=== PATIENT | female | born 1930 | race Caucasian/White ===

== ENCOUNTER 2017-05-05 12:55 | Inpatient (IN) | payer MEDICARE ==
[2017-05-05 13:19] LABS: #Eosinphils 0.2 thou/uL (0.0-0.7); #Lymphocytes 2.8 thou/uL (1.20-3.40); #Monocytes 0.2 thou/uL (0.11-0.59); #Neutrophils 5.3 thou/uL (1.40-6.50); %Basophils 0.4 % (0.0-1.0); %Eosinophils 1.8 % (0.0-10.0); %Lymphocytes 32.5 % (21.0-51.0); %Monocytes 2.6 % (0.0-10.0); %Neutrophils 62.7 % (42.0-75.0); Hemoglobin 9.5 g/dL (12.0-16.0); Mean Corpuscular HGB CONC 31.4 g/dL (32.0-36.0); Mean Corpuscular Volume 92.2 fl (81.0-99.0); Mean Platelet Volume 8.4 fL (7.4-10.4); Platelet Count 198 thou/uL (130-400); RBC Distribution Width 13.7 % (11.5-14.5); Red Blood Cell (RBC) Count 3.26 mill/uL (4.20-5.40); White Blood Cell (WBC) Count 8.5 thou/uL (4.8-10.8)
[2017-05-05 13:26] LABS: INR-International Normal Ratio 1.3; PTT 41.3 SEC (22.9-36.1); Prothrombin Time 16.5 SEC (12.0-14.7)
[2017-05-05 13:36] LABS: ALT (SGPT) 24 U/L (8-55); AST (SGOT) 68 U/L (5-34); Albumin 2.7 g/dL (3.4-4.8); Alkaline Phosphatase 100 U/L (40-150); Anion Gap 17 mmol/L (10-20); BUN (Urea Nitrogen) 25 mg/dL (9.8-20.1); Bilirubin, Total 0.2 mg/dL (0.2-1.2); CK (CPK) 94 U/L (29-168); Calc. Creatinine Clearance 0 mL/min (70-130); Calcium 7.6 mg/dL (7.8-10.44); Carbon Dioxide 16 mmol/L (23-31); Chloride 111 mmol/L (98-107); Estimated GFR-MDRD 60; Globulin 2.2 g/dL (2.4-3.5); Glucose 231 mg/dL (83-110); Potassium 4.2 mmol/L (3.5-5.1); Protein, Total 4.9 g/dL (6.0-8.3); Sodium 140 mmol/L (136-145)
[2017-05-05 13:41] LABS: CKMB 4.1 ng/mL (0-6.6); Troponin I 0.115 ng/mL (< 0.028)
[2017-05-05 13:46] LABS: Actual Bicarbonate (HCO3a) 18.8 mEq/L (22-26); CO2 Tension 39.1 mmHg (35.0-45.0); Hematocrit-ABG 29.6 % (36.0-47.0); Hemoglobin (Hb) 9.1 g/dL (12.0-16.0); O2 Tension (PaO2) 95.3 mmHg (80.0-100.0)
[2017-05-05 13:47] LABS: ALV-art Gradient 139.025 (0-20); Analyzer IN Cardio ER; Calcium, Ionized 1.1 mmol/L (1.12-1.30); Puncture Site RRA
--- NOTE | 2017-05-05 13:52 | RAD ---
PORTABLE CHEST 1 VIEW: DATE: 05/05/17. TIME: 1:40 p.m. HISTORY: Respiratory failure. FINDINGS: The lung apices have been excluded from the film. There is an endotracheal tube with tip 1.5 cm belo w the level of the vlad. A right internal jugular central line is seen with tip in the projection of the SVC. The heart is enlarged. there is left-sided pleural effusion. The visualized portions o f the right lung are clear. There are degenerative changes in the supine. A repeat exam is recommended to include the lung apices. POS: [facility]
[2017-05-05 14:09] LABS: Bilirubin Negative (Negative); Blood, Urine Negative (Negative); Clarity CLEAR (Clear); Glucose, Urine (Dipstick) Negative (Negative); Leukocyte Negative (Negative); Nitrite Negative (Negative); Protein, Urine (Dipstick) Negative (Neg-Trace); Specific Gravity, Urine 1.021 (1.002-1.036); Urobilinogen 0.2 mg/dL (0.2-1.0); pH, Urine 5.5 (5.0-9.0)
--- NOTE | 2017-05-05 15:12 | CT ---
CT BRAIN WITHOUT CONTRAST: Date: 05/05/17 HISTORY: Altered mental status. FINDINGS: There are changes of chronic small vessel ischemic disease in the periventricular white matter. The v entricular size is appropriate and the basilar cisterns are patent. No evidence of acute infarct, hem orrhage, midline shift, or abnormal extra-axial fluid collections are seen. The bony calvarium is int act. The visualized paranasal sinuses and mastoid air cells are well aerated. IMPRESSION: No CT evidence of acute intracranial process. POS: [facility]
--- NOTE | 2017-05-05 15:24 | CT ---
CT OF THE CERVICAL SPINE WITHOUT CONTRAST: Date: 05/05/17 INDICATION: History of trauma; 87-year-old female found down by her son with jaw pain earlier today. FINDINGS: The patient is intubated. There is diffuse osteopenia. There is multilevel spondylosis of the cervica l spine. Craniocervical junction appears preserved. No acute fracture or subluxation is evident. Osse ous central canal is preserved. There is a large left-sided pleural effusion. There is a right IJ erik tral venous catheter in place. IMPRESSION: 1. No acute osseous abnormality. 2. Multilevel spondylosis of the cervical spine. 3. Diffuse osteopenia. POS: [facility]
--- NOTE | 2017-05-05 16:48 | HP ---
DATE OF ADMISSION: 05/05/2017 PRIMARY CARE PHYSICIAN: Liseth Andujar M.D. CHIEF COMPLAINT: Found down unresponsive and out of the hospital cardiopulmonary arrest. HISTORY OF PRESENTING ILLNESS: Ms. Ellis is an 87-year-old female with past medical history of hy pertension, uterine cancer, and arthritis who presented to the emergency room after being found down. History is mainly obtained by discussion with the emergency room physician and chart review. The mary reynolds's son is in the room, but unfortunately, he was not present when the episode happened. The so n who brought the patient into the hospital is actually having anxiety attack and is being tended to in the other room in the ER. According to the ER physician, the patient suddenly complained of jaw and shoulder pain and her son felisa ent to get something from the other room and by the time he came back, she was on the floor unrespons evita. EMS was called and she was pulseless and was not breathing. CPR was immediately started with r eturn of spontaneous circulation in the field. She was brought in and currently is intubated. Estim ated length of time for which she was down is about 5-10 minutes before EMS was called and CPR was in itiated. Upon presentation to the emergency room, she was quite hypotensive with blood pressure recorded as lo w as 60/31. She was started on Levophed. She was not given IV fluids because she also has history o f congestive heart failure and her BNP is elevated to over 900. Her cardiac enzyme includes normal C K-MB with troponin of 0.115. Her EKG was quite concerning with ST depression in inferior leads and i nverted T waves in the lateral leads. She underwent a CT scan of the head and cervical spine of the neck, without any acute fractures or any hemorrhages. Given these findings of possible acute coronar y syndrome, Dr. Sipmson who is oncall for Cardiology was contacted by the ER physician. Dr. Simpson olivarez s evaluated the patient and wants her to be stabilized prior to taking to the cath laboratory technician or any invasiv e procedures. For now, the patient is being admitted to the Critical Care Unit on ventilator and pre ssors. PAST MEDICAL HISTORY: 1. Congestive heart failure. 2. Hypertension. 3. Uterine cancer. PAST SURGICAL HISTORY: 1. Breast biopsy. 2. Hysterectomy. PSYCHIATRIC HISTORY: Unknown. SOCIAL HISTORY: The patient used to smoke multiple years ago, but has quit smoking. Some of the fam jocelyn members also smoked but not that much. She currently lives with her son and walks around with th e help of a walker and is not very active. No history of drug or alcohol abuse. FAMILY HISTORY: Significant for at least stroke in one of her brothers as much as the son could tell me. Otherwise, he could not corroborate any history of coronary artery disease running in her famil y members. ALLERGIES: No known medication allergies. CURRENT MEDICATIONS: As listed; metoprolol succinate 100 mg daily, lisinopril 5 mg daily, hydrochlor othiazide 25 mg daily, vitamin D3 5000 units daily, Lasix 20 mg b.i.d., Aldactone 25 mg daily, ferrou s sulfate unknown dose, B12 daily. REVIEW OF SYSTEMS: Unavailable as the patient is currently intubated and sedated. PHYSICAL EXAMINATION: VITAL SIGNS: Upon presentation to the ER, blood pressure 94/69, pulse of 150, saturating 95% on vent ilator, respirations 16, temperature 96.1. GENERAL: She is intubated, sedated and is unresponsive because of that. She grimaces to pain. HEENT: She had a small abrasion to the back of her head. Pupils are round and reactive to light. M ucous membrane is moist. NECK: Free of any JVD, bruit or masses. CHEST: Clear to auscultation without any wheezing, rales or rhonchi. Rate and rhythm is regular wit hout any murmurs, rubs, or gallops. ABDOMEN: Soft, obese, nontender, and nondistended. Positive bowel sounds heard. MUSCULOSKELETAL: Extremity shows significant pitting edema bilaterally extending all the way up to h er thighs with some chronic looking venous stasis erythema in the lower extremities. 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 PSYCHIATRIC: Exam cannot be done. SKIN: According to the nursing report has left hip abrasion and abrasion on the back of the left kaushik e of the head and stage I pressure ulcer to the sacrum. NEUROLOGIC: Examination is limited. The patient is unresponsive and ventilated. LABORATORY DATA AND IMAGING DATA: Her CBC shows WBCs at 8.5, hemoglobin 9.5, platelet count of 198. INR 1.3. ABG showed a pH of 7.3, pCO2 of 39, and pO2 95. Serum chemistry; chloride 111, bicarbonat e 16, BUN 25, estimated GFR 60, blood sugar 231, lactic acid 7.0, AST 68, BNP 923. Urinalysis is neg ative for leukocyte esterase, ketones, blood or protein. Chest x-ray by my review shows good positio belkys of the endotracheal tube below the level of the vlad. Right internal jugular catheter has bee n done. She has left-sided pleural effusion, but no significant infiltrates. CT scan of the brain b y my review was negative for any intracranial hemorrhage, subdural hemorrhage or subarachnoid hemorrh age. No acute infarction. Chronic small vessel ischemic changes noticed. Twelve lead EKG per my re view as per the HPI with ST depression in the inferior leads and T-wave inversion in the lateral lead s with normal sinus rhythm. IMPRESSION AND PLAN: 1. Out of hospital cardiopulmonary arrest. This is most likely a cardiac event with ACS being the m ost likely possibility. The patient has known history of hypertension and congestive heart failure a nd she likely has some underlying cardiomyopathy as well. Cardiology has been consulted and I have litzy bradley discussed the care with Dr. Simpson. We will obtain a stat echocardiogram and start her on hep miquel drip for cardiovascular protocol. Vent management as per the Pulmonary Medicine team which has been consulted as well. She will be admitted to CCU per CCU protocol. Continue some symptomatic and supportive care. Once again at this time, pulmonary embolism cannot be ruled out. We will continue to trend serial cardiac enzymes. 2. Acute coronary syndrome. It is suspected highly at this time. Heparin drip as per the protocol as above. We will start her on rectal aspirin as well. We will restart her RAMAKRISHNA inhibitor and beta b locker if her blood pressure allows. Currently, she most likely is a candidate for cardiac catheteri zation only after initial stabilization. Further management per Cardiology recommendations and the r esults of her echocardiogram. Continue to trend serial cardiac enzymes. 3. Acute congestive heart failure. It is unclear if this is systolic versus diastolic. We will giv e her a small dose of Lasix if her blood pressure allows. She seems to be in gross fluid overload wi th bilateral lower extremity edema and elevated BNP. Echo will be delineative this is systolic versu s diastolic versus both. She has poor urine output and has a Jackson catheter placed in. We will jose tor strict I's and O's. 4. Cardiogenic shock. She will be continued on Levophed as necessary. Currently, she is in the pro cess of being weaned off. Avoid any IV fluids given the possibility of acute congestive heart failur e. 5. Lactic acidosis. This is likely secondary to cardiac arrest and cardiogenic shock. No evidence to suggest infection and no indication for antibiotics at this time. 6. Metabolic acidosis once again as per the plan above this. 7. Hyperglycemia. The patient does not have any history of diabetes per se. We will monitor her bl ood sugars and if they continue to run high, we will add insulin for coverage and check hemoglobin A1 c. 8. History of hypertension. Her medications are currently on hold because of hypotension upon prese ntation. 9. Uterine cancer. 10. Code status: FULL CODE. Discussed with the son present in the room who is a deputy program manager for [employer]. 11. Deep venous thrombosis and gastrointestinal prophylaxis. DISPOSITION: The patient is currently being admitted to the Critical Care Unit for cardiopulmonary a rrest and cardiogenic shock likely secondary to ACS. Further management will depend upon her clinica l course.
[2017-05-05 16:57] LABS: Troponin I 4.627 ng/mL (< 0.028)
[2017-05-05] MEDS ORDERED: Furosemide 20 MG/2 ML VIAL SLOW IVP SCH (17:00)
--- NOTE | 2017-05-05 17:08 | PDOC.EVN ---
Event Note - Event Note Event Note: Pt coded shortly after reaching CCU floor w PEA arrest again.Despite CPR for over 20 mins,no ROSC and Pt pronounced by Dr. Castle. Family notified by myself.
--- NOTE | 2017-05-06 11:01 | DS ---
DATE OF ADMISSION: 05/05/2017 DATE OF : 05/05/2017 CAUSE OF : 1. Pulseless electrical activity cardiac arrest. 2. Cardiopulmonary out of hospital arrest. 3. Likely acute coronary syndrome. PRIMARY CARE PHYSICIAN: Liseth Andujar M.D. BRIEF HOSPITAL COURSE: Ms. Ellis was admitted earlier by myself after she has sustained an out of hospital cardiopulmonary arrest and was brought into the emergency room, intubated. She was found to have EKG changes and cardiac enzyme elevation consistent with ACS. She was admitted to the Critical Care Unit. Cardiology was consulted. Please see admission history and physical for further details. Shortly after arriving to her room in the CCU: The patient coded again. She had bradycardia eventually turning into PEA arrest. CPR was initiated, but spontaneous circulation was not returned. Pulmonary Medicine was consulted and Dr. Castle saw the patient and called the code off after about 20 minutes. Family was notified by myself. TIME OF : 16:53 on 05/05/2017. SHIRA
--- NOTE | 2017-05-10 15:41 | PQF ---
PASTORA ROSEN RICHA MD [id number] CLINICAL DOCUMENTATION CLARIFICATION FORM: POST DISCHARGE Addendum to original discharge summary date: ____ Late entry note date: __ DATE: 05/10/2017 ATTN: DR. TROY Please exercise your independent, professional judgment in responding to the clarification form. Clinical indicators are provided on the bottom of this form for your review Please check appropriate box(s): AMI TYPE: [ ] Acute Coronary Syndrome (ACS) without Acute PR meaning Unstable Angina [ X ] NSTEMI [ ] AMI Type II [ ] STEMI (please also specify site and arterysee below) If STEMI, SITE:[ ] Anterior [ ] Apical [ ] Lateral [ ] Inferior [ ] Posterior [ ] Q Wave [ ] Septal [ ] Unable to Determine SPECIFIC ARTERY (Based on site) [ ] Left Main Coronary[ ] Diagonal [ ] Left Anterior Descending[ ] Oblique Marginal [ ] Right Coronary Artery[ ] Unable to Determine [ ] Left Circumflex ONSET OF INFARCTION: [ ] Onset Less than 4 weeks of admission [ ] Onset Greater than 4 weeks of admission X[ X] Unable to determine DUE TO (if applicable): [ ] Stent occlusion [ ] In-Stent stenosis [ ] Occlusion of coronary bypass graft [ ] Complication of PCI [ ] Underlying CAD [ ] Other [ ] Other diagnosis [ X] Unable to determine In addition, please specify: Present on Admission (POA): [ X] Yes [ ] No [ ] Unable to determine CLINICAL INDICATORS - SIGNS / SYMPTOMS / LABS: LAB: ABG pH 7.3, pCO2 OF 39, BUN 25 GFR 60, BNP 923, TROPONIN 0.115 EKG changes - ST DEPRESSION IN THE INFERIOR LEADS AND T-WAVE INVERSION IN THE LATERAL LEADS W/ NORMAL SINUS RHYTHM H&P: CARDIOPULMONARY ARREST - MOST LIKELY CARDIAC EVENT W/ ACUTE CORONARY SYNDROME DS: PULSELESS ELECTRICAL ACTIVITY CARDIAC ARREST CARDIOPULMONARY OUT OF HOSPITAL ARREST LIKELY ACUTE CORONARY SYNDROME RISKS: Hypertension CHF CARDIOGENIC SHOCK TREATMENTS: Continuous cardiac monitoring HEPARIN DRIP RAMAKRISHNA INHIBITOR BETA MOUSTAPHA (This form is maintained as a part of the permanent medical record) 2014 [employer]. All Rights Reserved Sherice Bello CCS, TILE GRINDER-H [email or web address] ([email or web address]) [phone] [employer]
--- NOTE | 2017-05-10 15:47 | PQF ---
PASTORA ROSEN RICHA MD [id number] CLINICAL DOCUMENTATION CLARIFICATION FORM: POST DISCHARGE Addendum to original discharge summary date: ____ Late entry note date: __ DATE: 05/10/2017 ATTN: DR. TROY Please exercise your independent, professional judgment in responding to the clarification form. Clinical indicators are provided on the bottom of this form for your review Please check appropriate box(s): HEART FAILURE: A. TYPE: [ ] Systolic / HFrEF [ ] Diastolic / HFpEF [ ] Combined Systolic / Diastolic B. ACUITY [ ] Acute [ ] Acute on Chronic [ ] Chronic [ ] Other diagnosis [ X ] Unable to determine In addition, please specify: Present on Admission (POA): [X ] Yes [ ] No [ ] Unable to determine For continuity of documentation, please document condition throughout progress notes and discharge summary. Thank You. CLINICAL INDICATORS - SIGNS / SYMPTOMS / LABS: Ejection Fraction =__60____ % Peripheral edema Elevated BNP CXR results H&P: ACUTE CHF - "IT IS UNCLEAR IF THIS IS SYSTOLIC VERSUS DIASTOLIC" RISKS: Hypertension CARDIAC ARREST TREATMENTS: LASIX Cardiac monitoring (This form is maintained as a part of the permanent medical record) 2014 [employer]. All Rights Reserved Sherice Bello, CCS, PRISON TEACHER-H [email or web address] [phone] [employer]
== END 2017-05-05 16:53 | disposition expired ==
LOC: ERS 12:55 → CCU 15:10
PROVIDERS: ADMIT Internal Medicine; ATTEND Internal Medicine
PROC: 5A12012 Performance of Cardiac Output, Single, Manual (ICD-10-PCS; principal; 2017-05-05)
PROC: 5A1935Z Respiratory Ventilation, Less than 24 Consecutive Hours (ICD-10-PCS; 2017-05-05)
PROC: 02HV33Z Insertion of Infusion Device into Superior Vena Cava, Percutaneous Approach (ICD-10-PCS; 2017-05-05)
DX: I21.4 Non-ST elevation (NSTEMI) myocardial infarction (principal); E87.2 Acidosis; I46.2 Cardiac arrest due to underlying cardiac condition; R57.0 Cardiogenic shock; I11.0 Hypertensive heart disease with heart failure; L89.151 Pressure ulcer of sacral region, stage 1; I50.9 Heart failure, unspecified; Z78.1 Physical restraint status; Z85.42 Personal history of malignant neoplasm of other parts of uterus; Z87.891 Personal history of nicotine dependence; R73.9 Hyperglycemia, unspecified
CPT/HCPCS: 36416; 36556; 51702; 70450; 71045; 72125; 80053; 81003; 82550; 82553; 82805; 83605; 83880; 84484; 85025; 85610; 85730; 86850; 86900; 86901; 92950; 93005; 94002; 94760; 96365; 96366; 96367